=== PATIENT | male | born 1945 | race Two or more races ===

== ENCOUNTER 2019-07-18 10:28 | Day surgery (SDC) | payer OTHER ==
[2019-07-18] MEDS ORDERED: fentaNYL CITRATE 100 MCG/2 ML VL IV ONE (11:00)
[2019-07-18] MEDS ORDERED: MIDAZOLAM HCL 1MG/1ML-2 ML VIAL IV ONE (11:00)
[2019-07-18] MEDS ORDERED: LIDOCAINE VISCOUS 2% 15ML UD PO ONE (11:00)
[2019-07-18] MEDS ORDERED: diphenhdrAMINE HCL 50 MG/1 ML VL IV ONE (11:00)
[2019-07-18 11:35] LABS: Basophils # (auto) 0 uL; Basophils % (auto) 0.7 % (0.0-2.0); Eosinophils # (auto) 0.1 uL; Eosinophils % (auto) 1.7 % (0.0-7.0); Hematocrit 46.4 % (41.0-53.0); Hemoglobin 15.3 g/dL (13.5-17.5); Lymphocytes # (auto) 1.5 uL; Lymphocytes % (auto) 20.6 % (10.0-50.0); Mean Corpuscular Hemoglobin 28.5 pg (28.0-32.0); Mean Corpuscular Hgb Conc. 32.9 g/dL (32.0-36.0); Mean Corpuscular Volume 86.7 fL (80.0-100.0); Monocytes # (auto) 0.5 uL; Monocytes % (auto) 6.7 % (0.0-12.0); Neutrophils % (auto) 70.3 % (37.0-80.0); Nucleated Red Blood Cells % 0.1 %; Platelet Count (auto) 173 10^3/uL (140-450); Red Blood Cells 5.35 10^6/uL (4.5-5.90); Red Cell Distribution Width 13.9 % (11.8-14.3); White Blood Cell 7.1 10^3/uL (4.4-10.8)
[2019-07-18 11:52] LABS: INR 1.01 (0.9-1.15); Partial Thromboplastin Time 36.5 sec (23.64-32.05)
[2019-07-18 11:59] LABS: BUN/Creatinine Ratio 14.7; Calcium 9.2 mg/dL (8.5-10.1)
== END 2019-07-18 14:13 | disposition home or self-care (01) ==
LOC: CATH 10:28
PROVIDERS: ATTEND Internal Medicine
DX: I48.20 Chronic atrial fibrillation, unspecified (principal); I08.1 Rheumatic disorders of both mitral and tricuspid valves; I25.10 Atherosclerotic heart disease of native coronary artery without angina pectoris; I10 Essential (primary) hypertension; E78.5 Hyperlipidemia, unspecified; I25.2 Old myocardial infarction; I73.9 Peripheral vascular disease, unspecified; Z79.899 Other long term (current) drug therapy; Z95.818 Presence of other cardiac implants and grafts
CPT/HCPCS: 36415; 71045; 80048; 85025; 85610; 85730; 92960; 93005; 93312; J1200; J2250; J3010; J7030; 99152

== ENCOUNTER 2024-02-15 13:22 | Emergency (ER) | payer OTHER ==
[~2024-02-15] VITALS: Ht 172.7 cm; Wt 100.0 kg
[2024-02-15 15:00] VITALS: BP 154/95; PULSE 106; RESP 16; TEMP 98.4; O2SAT 96
[2024-02-15] MEDS: HYDROcodone-ACET 10/325MG TAB PO ONE (15:22)
[2024-02-15] MEDS ORDERED: PRED20TA2 PO (15:39)
[2024-02-15] MEDS ORDERED: TRAM-626 PO (15:39)
== END 2024-02-15 15:47 | disposition home or self-care (01) ==
LOC: ER 13:26
DX: M51.16 Intervertebral disc disorders with radiculopathy, lumbar region (principal); I10 Essential (primary) hypertension
CPT/HCPCS: 72131